=== PATIENT | male | born 1975 | race Caucasian/White ===

== ENCOUNTER 2022-08-17 09:32 | Day surgery (SDC) | payer BC ==
[~2022-08-17] VITALS: Ht 177.8 cm; Wt 79.4 kg
[~2022-08-17 09:32] MED LIST: ATOR80TA59; ERGO500029; NS 1,000 ML IV ONE
[2022-08-17] MEDS ORDERED: propofoL 200 MG/20 ML VIAL As Ordered ONE ×2 (11:31→11:58)
[2022-08-17] MEDS ORDERED: LIDOCAINE 2% 100MG/5ML SDV (FOR ANES.) As Ordered ONE (11:31)
[2022-08-17 12:25] VITALS: BP 131/80
== END 2022-08-17 12:34 | disposition home or self-care (01) ==
LOC: M SDC 09:32
PROVIDERS: ATTEND Internal Medicine Gastroenterology
DX: Z12.11 Encounter for screening for malignant neoplasm of colon (principal); Z80.0 Family history of malignant neoplasm of digestive organs; D12.6 Benign neoplasm of colon, unspecified; K57.30 Diverticulosis of large intestine without perforation or abscess without bleeding; K64.4 Residual hemorrhoidal skin tags; K64.8 Other hemorrhoids; E78.5 Hyperlipidemia, unspecified; Z79.02 Long term (current) use of antithrombotics/antiplatelets; Z80.1 Family history of malignant neoplasm of trachea, bronchus and lung